=== PATIENT | female | born 1970 | race Caucasian/White ===

== ENCOUNTER 2018-01-03 17:43 | Inpatient (IN) | payer BC ==
[2018-01-03 19:02] LABS: Bilirubin Small (Negative); Blood, Urine Large (Negative); Clarity CLOUDY (Clear); Glucose, Urine (Dipstick) Negative (Negative); Leukocyte Trace (Negative); Nitrite Negative (Negative); Protein, Urine (Dipstick) 30 mg/dL (Neg-Trace); Specific Gravity, Urine 1.029 (1.002-1.036); pH, Urine 5.5 (5.0-9.0)
[2018-01-03 19:06] LABS: Bacteria/HPF 1+ HPF (None Seen); Hyaline Casts/LPF 4-6 HYALINE CAST LPF (0-3 Hyaline); Pathc Cast-AUWi Flag 1.21 (0-2.49)
[2018-01-03 19:11] LABS: #Eosinphils 0.1 thou/uL (0.0-0.7); #Lymphocytes 0.7 thou/uL (1.20-3.40); #Monocytes 0.4 thou/uL (0.11-0.59); #Neutrophils 4.8 thou/uL (1.40-6.50); %Basophils 0.8 % (0.0-1.0); %Eosinophils 1.3 % (0.0-10.0); %Lymphocytes 11.2 % (21.0-51.0); %Monocytes 6.1 % (0.0-10.0); %Neutrophils 80.6 % (42.0-75.0); Hemoglobin 14.3 g/dL (12.0-16.0); Mean Corpuscular Hemoglobin 28.3 pg (27.0-31.0); Mean Corpuscular Volume 88.5 fl (81.0-99.0); Mean Platelet Volume 8.2 fL (7.4-10.4); Platelet Count 231 thou/uL (130-400); RBC Distribution Width 12.9 % (11.5-14.5); Red Blood Cell (RBC) Count 5.03 mill/uL (4.20-5.40); White Blood Cell (WBC) Count 5.9 thou/uL (4.8-10.8)
[2018-01-03 19:18] LABS: Pregnancy Test - Urine (BHCG) Negative (Negative); Pregu Control Background? CLEAR/WHITE (CLR/WHITE); Pregu Control Bar Appear? YES (CONTROL BAR); Specific Gravity 1.029 (1.002-1.036)
[2018-01-03] MEDS ORDERED: Metoclopramide HCl 10 MG/2 ML VIAL ONE (19:20)
[2018-01-03] MEDS ORDERED: Ketorolac Tromethamine 30 MG/ML VIAL ONE (19:20)
[2018-01-03 19:25] LABS: Crystals/HPF 2+ CA OXALATE HPF (Negative)
[2018-01-03 19:29] LABS: ALT (SGPT) 20 U/L (8-55); AST (SGOT) 22 U/L (5-34); Alkaline Phosphatase 85 U/L (40-150); Anion Gap 12 mmol/L (10-20); BUN (Urea Nitrogen) 11 mg/dL (7.0-18.7); Bilirubin, Total 0.4 mg/dL (0.2-1.2); Calc. Creatinine Clearance 0 mL/min (70-130); Calcium 8.8 mg/dL (7.8-10.44); Carbon Dioxide 25 mmol/L (22-29); Chloride 105 mmol/L (98-107); Estimated GFR-MDRD 77; Globulin 3.1 g/dL (2.4-3.5); Glucose 113 mg/dL (70-105); Potassium 3.8 mmol/L (3.5-5.1); Protein, Total 7.1 g/dL (6.0-8.3); Sodium 138 mmol/L (136-145)
--- NOTE | 2018-01-03 21:32 | CT ---
CT ABDOMEN NONCONTRAST CT PELVIS NONCONTRAST: (urolithiasis protocol) DATE: 01/03/18 TIME: 7:44 p.m. HISTORY: 47-year-old female with right flank pain, fever, vomiting, and diarrhea. COMPARISON: None. TECHNIQUE: IV injection of iodinated contrast media: none Oral contrast media: none FINDINGS: Other than for urolithiasis, the lack of IV and oral contrast limits the evaluation. Stomach is narrowed, and there is a suture line running along it. The right kidney is mildly enlarged, and there is edema and fluid throughout the right perirenal spac e. There is at least one punctate 2 mm calculus in one of the right renal upper pole calyces, and add itional faint calcifications at corticomedullary junctions. There are at least two calculi in left re nal lower pole calyces. One of them is 2 to 3 mm and the other one is 1 mm. The smaller one is only v isible on the coronal reconstructions. There is mild dilation of the right renal collecting system, but only minimal dilation of the distal right ureter. There is a punctate 1 or 2 mm calculus lodged within the mucosal side of the right uret erovesical junction within a decompressed urinary bladder. Several diverticula in the sigmoid colon w ithout acute diverticulitis. Within the limitations of a noncontrast scan, no gross pathology identif ied involving the liver, abdominal aorta, pancreas, spleen, or adrenals. No small bowel dilation. No ascites or pneumoperitoneum. Normal appendix. IMPRESSION: 1) Positive for right sided obstructive uropathy. A tiny 1 or 2 mm calculus lodged at the right ureterovesical junction at the bladder, is causing an inordinate amount of right perirenal edema vers us extravasated urine, mild right hydronephrosis, and right nephromegaly. 2) Status post vertical sleeve gastrectomy bariatric surgery. DAVID Massey POS: OCTAVIANO
[2018-01-03] MEDS ORDERED: Ondansetron ODT 4 MG TAB SL PRN (22:55)
[2018-01-03] MEDS ORDERED: Ondansetron HCl/PF 4 MG/2 ML Vial IVP PRN (22:55)
[2018-01-03] MEDS ORDERED: Acetaminophen 325 MG TAB PO PRN (22:55)
[2018-01-03 23:54] VITALS: BMI 34.5
[2018-01-04] MEDS ORDERED: Tamsulosin HCl 0.4 MG CAP PO SCH ×2 (00:21→21:00)
[2018-01-04] MEDS ORDERED: Ondansetron HCl/PF 4 MG/2 ML Vial IVP PRN (00:21)
[2018-01-04] MEDS ORDERED: Morphine 5 MG/ML SYRINGE SLOW IVP PRN (00:21)
[2018-01-04] MEDS: Sodium Chloride 0.9% 1,000 ML IV SCH ×2 (00:41→12:20)
[2018-01-04] MEDS ORDERED: Ketorolac Tromethamine 30 MG/ML VIAL IVP PRN (02:30)
--- NOTE | 2018-01-04 04:18 | HP ---
DATE OF ADMISSION: 01/03/2018 TIME OF SERVICE: 0145. PRIMARY CARE PHYSICIAN: Dr. Mohit Conner. CHIEF COMPLAINT: Flank pain. HISTORY OF PRESENT ILLNESS: Ms. Cespedes is a 47-year-old white female with history of nephrolithi asis in the past who presented to the emergency department with 2-day history of fever, nausea, vomit ing, and diarrhea. This seemed to start on 01/01 and ended 01/02/2018. Then, she developed right fl ank pain that radiated to the right inguinal area. She has continued to have subjective fevers. She then presented to the emergency department for evaluation on 01/03/2018. There, she was found to hernandez ve a normal white count, normal chemistries, urinalysis was significant for possible infection, and C T showed a UVJ stone 1-2 mm with obstruction and secondary hydronephrosis and hydroureter. Patient r eceived Toradol with relief and we were subsequently called for admit. Patient was then accepted from the ER, and transferred to the floor. On my arrival, she was much mor e comfortable than admission. PAST MEDICAL HISTORY: Nephrolithiasis. PAST SURGICAL HISTORY: 1. Breast reduction. 2. Exploratory laparotomy. 3. . 4. Gastric sleeve. HOME MEDICATIONS: Metformin 500 mg p.o. b.i.d. for weight loss. She had been on Flomax previously w ith past renal stone. ALLERGIES: PENICILLIN causes itching. FAMILY HISTORY: Negative for clotting or bleeding disorder, no immune dysfunction. SOCIAL HISTORY: She drinks about twice a month socially. Otherwise negative habit x3. She is marri ed, monogamous. REVIEW OF SYSTEMS: A 10-point review of systems was performed and negative for all systems except st ated as per HPI. PHYSICAL EXAMINATION: VITAL SIGNS: Temperature 98.2, pulse 82, blood pressure 139/67, respiratory 18, O2 sat 96% on room a ir. GENERAL: She is awake. She is alert. She is oriented x3. She is well-developed, well-nourished, w nishi female, appears to be in no acute distress. HEENT: Normocephalic and atraumatic. Pupils are equal, reactive to light bilaterally. Mucous membr anes moist. There are no visible lesions or thrush. NECK: Supple. There is no lymphadenopathy, JVD, or thyromegaly. CARDIOVASCULAR: She has normal carotid upstrokes without bruits. LUNGS: Clear to auscultation bilaterally. She has no wheezes, no rales, no rhonchi with good air mo vements. Symmetric chest excursion. ABDOMEN: Soft, nontender, nondistended. No masses or organomegaly. No flank tenderness. EXTREMITIES: No cyanosis, clubbing, no edema, 2+ peripheral pulses. SKIN: Warm, moist, and well perfused. She has no rashes or lesions. NEUROLOGIC: Cranial nerves II-XII are grossly intact. No focal neurologic deficits. SKIN: She has normal speech pattern, 5/5 strength. MUSCULOSKELETAL: Normal to inspection. No inflamed joints and no palpable effusions. LABORATORY DATA: CMP was within normal limits. Liver function within normal limits. CBC showed whi te count of 5.9, hemoglobin 14.3, hematocrit 44.5, and platelet count 231,000. Her urinalysis showed 1+ bacteria, 11-20 red blood cells, 4-6 white blood cells, and 2+ calcium oxalate. RADIOGRAPHIC STUDIES: CT scan of the abdomen and pelvis showed a 1-2 mm obstructing ureterovesicular stone with inordinate amount of hydroureter and hydronephrosis. ASSESSMENT AND PLAN: 1. Nephrolithiasis. 2. Obstructive uropathy. 3. Intractable flank pain. I will place patient on inpatient status. We will put her on Flomax 0.4 mg p.o. at bedtime. Give fi rst dose now. I will consult Urology, Dr. Gaytan is on-call for evaluation. Due to the obstruction, she may need lithotripsy and/or stone extraction. We will continue Toradol as needed for pain medic ine. We will keep her n.p.o. and follow up with Urology recommendations.
[2018-01-04 05:22] LABS: %Basophils 0.5 % (0.0-1.0); %Monocytes 9.4 % (0.0-10.0); %Neutrophils 60.1 % (42.0-75.0); Mean Corpuscular Hemoglobin 28.7 pg (27.0-31.0); Mean Corpuscular Volume 86.9 fl (81.0-99.0); Mean Platelet Volume 8.1 fL (7.4-10.4); Platelet Count 193 thou/uL (130-400); Red Blood Cell (RBC) Count 4.17 mill/uL (4.20-5.40); White Blood Cell (WBC) Count 5.1 thou/uL (4.8-10.8)
[2018-01-04 05:23] LABS: #Eosinphils 0.2 thou/uL (0.0-0.7); #Lymphocytes 1.4 thou/uL (1.20-3.40); #Monocytes 0.5 thou/uL (0.11-0.59); #Neutrophils 3.1 thou/uL (1.40-6.50)
[2018-01-04 05:35] LABS: Anion Gap 7 mmol/L (10-20); BUN (Urea Nitrogen) 8 mg/dL (7.0-18.7); Calc. Creatinine Clearance 135 mL/min (70-130); Calcium 7.8 mg/dL (7.8-10.44); Carbon Dioxide 26 mmol/L (22-29); Chloride 112 mmol/L (98-107); Estimated GFR-MDRD Greater than 90; Glucose 96 mg/dL (70-105); Potassium 3.8 mmol/L (3.5-5.1); Sodium 141 mmol/L (136-145)
[2018-01-04] MEDS ORDERED: Famotidine/PF 20 mg/2ml Vial SLOW IVP SCH (09:00)
[2018-01-04] MEDS ORDERED: Famotidine 40 MG/4 ML VIAL SLOW IVP SCH ×2 (10:45→21:00)
--- NOTE | 2018-01-04 13:45 | CT ---
CT ABDOMEN AND PELVIS WITHOUT CONTRAST: Date: 01/04/18 PROVIDED CLINICAL HISTORY: Ureteral calculus. FINDINGS: Comparison made with the study performed 01/03/18. The visualized lung bases remain free of significant opacity. Nonobstructing bilateral renal calculi are demonstrated. Interval improvement in right-sided hydronep hrosis, which is now minimal. The previously described right UVJ/bladder calculus persists, unchanged . The solid abdominal organs demonstrate an otherwise unremarkable unenhanced CT appearance. Right robert nephric fat stranding persists. No additional inflammatory fat stranding, free fluid, or free air logan arent. Postsurgical changes involving the stomach are redemonstrated. The osseous structures demonstrate no concerning osteoblastic or osteolytic lesions. IMPRESSION: Interval decrease in right-sided hydronephrosis. Otherwise stable exam. POS: OFF
--- NOTE | 2018-01-04 16:04 | CON ---
DATE OF CONSULTATION: 01/04/2018 REASON FOR CONSULTATION: Right ureteral stone. HISTORY OF PRESENT ILLNESS: Ms. Cespedes is a 47-year-old female, who presented to the emergency r o on 01/03/2018 with severe right-sided flank pain. She underwent imaging, which demonstrated a di stal right ureteral stone. She also had fever a few days prior, but associated this with gastrointes tinal viral illness. She has had no fevers since being seen in the hospital. She denies any dysuria . She has a prior history of a presumed stone passage in the past. PAST MEDICAL HISTORY: Kidney stones. PAST SURGICAL HISTORY: Breast reduction, exploratory laparotomy, , and gastric sleeve. CHRONIC MEDICATIONS: Metformin for weight loss. ALLERGIES: PENICILLIN causes itching. 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 She drinks on a soc ial basis. She is . She does not smoke. REVIEW OF SYSTEMS: Respiratory: No shortness of breath. Cardiovascular: No chest pain or palpitat ions. Gastrointestinal: Denies chronic constipation or diarrhea. Neurologic: No history of stroke . Genitourinary: Please see history of present illness. PHYSICAL EXAMINATION: GENERAL: She is awake and alert. She is in no distress at this time. HEENT: Normocephalic, atraumatic. NECK: Supple, without masses. CHEST: Clear to auscultation. CARDIOVASCULAR: Regular rate and rhythm. ABDOMEN: Soft, nontender, no palpable masses. Liver and spleen are palpable. No abdominal tenderne ss. IMAGING: CT scan, distal right ureteral stone. IMPRESSION AND PLAN: Ms. Cespedes is a 47-year-old female, who presented with a symptomatic distal right ureteral stone. There was 2 mm in size and she is asymptomatic at this time. We repeated her CT scan to determine whether the stone has passed or not. The stone is still present. We have disc ussed management options, which include observation with hopes of spontaneous stone passage versus en doscopic management with ureteroscopy and stone extraction. Because the stone is quite small and she is asymptomatic at this time, she is not to proceed with expectant management. She will contact us if she develops pain is uncontrollable or fevers or the stone is not passed within the next 2 to 3 we eks.
--- NOTE | 2018-01-04 16:41 | DIS ---
DATE OF ADMISSION: 01/03/2018 DATE OF DISCHARGE: 01/04/2018 PRIMARY CARE PHYSICIAN: Dr. Mohit Conner. DISCHARGE DIAGNOSES: 1. Nephrolithiasis. 2. Obstructive uropathy. 3. Flank pain. HOSPITAL COURSE: Ms. Cespedes was admitted to [facility] on 01/04/2018 for the above-mentioned diagnoses. Please refer to history and physical note from 01/04/2018 for further information. She received pain medications. She had a repeat CT scan of abdomen and pelvis, which showed interval improvement in right-sided hydronephrosis, which is now minimal. She continued to have right UVJ/bladder calculus. She was seen by Nephrology Service. After discussion with Nephrology Service, patient elected for conservative management. This is because the stone was quite small and she was asymptomatic. She will follow up with Nephrology Service if she develops uncontrollable pain, fevers, or if the stone has not passed within the next 2-3 weeks. I assessed Ms. Cespedes on the day of discharge. She feels better, denies chest pain or shortness of breath. Vital signs are stable. S1 and S2 are heard , regular. Lungs are clear to auscultation. DISCHARGE MEDICATIONS: Include metformin 500 mg daily, Flomax 0.4 mg at bedtime and Ketorolac 10 mg every 8 hours as needed. Many thanks for allowing me to participate in your patient's care. Please feel free to contact me with any questions or concerns. DISCHARGE DESTINATION: Home. [facility]
[2018-01-04 17:06] VITALS: BP 127/82; TEMP 98.7
== END 2018-01-04 18:20 | disposition home or self-care (01) | DRG 694 ==
LOC: ERS 17:43 → T4-A 22:38
PROVIDERS: ADMIT Internal Medicine; ATTEND Internal Medicine
DX: N13.2 Hydronephrosis with renal and ureteral calculous obstruction (principal); N13.9 Obstructive and reflux uropathy, unspecified; Z79.84 Long term (current) use of oral hypoglycemic drugs; Z98.84 Bariatric surgery status; Z88.0 Allergy status to penicillin
CPT/HCPCS: 36415; 74176; 80048; 80053; 81003; 81015; 81025; 85025; 87086; 96361; 96374; 96375; J1885; J2765